=== PATIENT | female | born 1995 | race Caucasian/White ===

== ENCOUNTER 2022-07-25 05:22 | Emergency (ER) | payer OTHER ==
[~2022-07-25] VITALS: Ht 162.6 cm; Wt 77.1 kg
[2022-07-25 06:18] VITALS: BP 137/83
--- NOTE | 2022-07-25 06:19 | NUR ---
B[facility] C/O FLU LIKE SYMPTOMS STARTED WEDNESDAY, PT IS A/O X 4, RR EVEN AND UNLABORED NO SOB NOTED, PATIENT IS AFEBRILE. VSS. WILL CONTINUE TO MONITOR.
[2022-07-25] MEDS ORDERED: ONDANSETRON HCL/PF 4 MG/2 ML VIAL ONE (06:27)
[2022-07-25] MEDS ORDERED: IV NS 0.9% 1,000 ML BAG IV ONE (06:30)
[2022-07-25] MEDS ORDERED: ONDANSETRON HCL/PF 4 MG/2 ML VIAL IVP ONE (06:30)
--- NOTE | 2022-07-25 06:36 | NUR ---
RAC #20G S/L BLOOD AND COVID ANTIGEN SWAB COLLECTED AND SENT TO LAB
[2022-07-25 06:41] LABS: BASOPHILS # (AUTO) 0.1 K/uL (0.0-0.2); BASOPHILS % (AUTO) 0.6 % (0.0-2.0); EOSINOPHILS % (AUTO) 1.7 % (0.0-6.0); HEMATOCRIT 38 % (33-45); HEMOGLOBIN 13.1 g/dL (11.5-14.8); LYMPHOCYTES # (AUTO) 1.9 K/uL (0.8-4.8); LYMPHOCYTES % (AUTO) 20.6 % (20.0-44.0); MEAN CORPUSCULAR HGB CONC 34 g/dl (31.0-36.0); MEAN CORPUSCULAR VOLUME 86 fL (82-100); MONOCYTES # (AUTO) 0.8 K/uL (0.1-1.30); MONOCYTES % (AUTO) 8.2 % (2.0-12.0); NEUTROPHILS # (AUTO) 6.4 K/uL (1.8-8.9); NEUTROPHILS % (AUTO) 68.9 % (43.0-81.0); PLATELET COUNT (AUTO) 284 K/uL (150-450); RED BLOOD CELL COUNT(AUTO) 4.48 MIL/uL (4.0-5.2); WHITE BLOOD COUNT (AUTO) 9.4 K/uL (4.3-11.0)
--- NOTE | 2022-07-25 06:43 | NUR ---
urine sent to lab
[2022-07-25 06:45] LABS: BILIRUBIN,URINE NEGATIVE (NEGATIVE); COLOR,URINE DARK YELLOW (YELLOW); LEUKOCYTE ESTERASE ,URINE NEGATIVE (NEGATIVE); NITRITE, URINE NEGATIVE (NEGATIVE); PROTEIN,URINE TRACE mg/dl (NEGATIVE); UGLUCOSE NEGATIVE (NEGATIVE); UROBILINOGEN,URINE 0.2 EU/dL (0.2)
--- NOTE | 2022-07-25 06:45 | NUR ---
US TECH AT BEDSIDE
[2022-07-25 06:51] LABS: CALCIUM, SERUM 9.1 mg/dL (8.5-10.1); CARBON DIOXIDE 23 mmol/L (21-32); CHLORIDE 103 mmol/L (98-107); CREATININE 0.5 mg/dL (0.6-1.3); GLUCOSE 82 mg/dL (74-106); POTASSIUM 3.7 mmol/L (3.5-5.1); SODIUM SERUM 136 mmol/L (136-145); UREA NITROGEN, BLOOD 9 mg/dL (7-18)
[2022-07-25 06:57] LABS: ALANINE AMINOTRANSFERASE 19 U/L (12-78); ALBUMIN 3.3 g/dL (3.4-5.0); ALKALINE PHOSPHATASE 63 U/L (46-116); ASPARTATE AMINOTRANSFERASE 10 U/L (15-37); BILIRUBIN,DIRECT 0.1 mg/dL (0.0-0.2); BILIRUBIN,TOTAL 0.2 mg/dL (0.2-1.0); TOTAL PROTEIN, SERUM 7.6 g/dL (6.4-8.2)
[2022-07-25 06:59] LABS: BACTERIA,URINE Rare /HPF (None Seen); MUCUS,URINE Moderate /LPF (None Seen); RBC,URINE 0-2 /HPF (0-2); SQUAMOUS EPITHELIAL CELL,UR Moderate /HPF (None Seen)
--- NOTE | 2022-07-25 07:30 | NUR ---
Patient eloped from facility. ER MD notified.
--- NOTE | 2022-07-25 07:30 | NUR ---
ELOPED IN STABLE CONDITION
--- NOTE | 2022-07-25 08:07 | NUR ---
CALLED [facility]. SPOKE TO [employer] #[phone] AND FILED A REPORT.
== END 2022-07-25 08:18 | disposition left against medical advice (07) ==
LOC: ER 05:32
DX: R11.2 Nausea with vomiting, unspecified (principal); Z20.822 Contact with and (suspected) exposure to COVID-19; R00.0 Tachycardia, unspecified; E86.0 Dehydration
CPT/HCPCS: 99285; 96360; 76805; 87426; 93005; 85025; 80048; 87086; 80076; 81001; 36415; 84484; J7030; C9803; J2405

== ENCOUNTER 2024-01-03 23:17 | Emergency (ER) | payer OTHER ==
[~2024-01-03] VITALS: Ht 167.6 cm; Wt 64.0 kg
[2024-01-04 00:35] LABS: PREGNANCY TEST URINE QUAL NEGATIVE (NEGATIVE)
[2024-01-04 01:59] VITALS: BP 130/68; TEMP 98.5; O2SAT 100
== END 2024-01-04 01:59 | disposition home or self-care (01) ==
LOC: ER 23:21
DX: S06.0X0A Concussion without loss of consciousness, initial encounter (principal); S93.492A Sprain of other ligament of left ankle, initial encounter; S66.811A Strain of other specified muscles, fascia and tendons at wrist and hand level, right hand, initial encounter; Z60.2 Problems related to living alone; Y04.0XXA Assault by unarmed brawl or fight, initial encounter; Y93.89 Activity, other specified; Y92.89 Other specified places as the place of occurrence of the external cause; Y99.8 Other external cause status
CPT/HCPCS: 70450-TC; 73130-TC; 73610-TC; 84703-TC

== ENCOUNTER 2024-02-01 22:05 | Emergency (ER) | payer OTHER ==
[~2024-02-01] VITALS: Ht 162.6 cm; Wt 77.1 kg
[2024-02-01] MEDS ORDERED: PROM118S5 PO (22:29)
[2024-02-01 22:55] VITALS: BP 134/87; TEMP 98.1; O2SAT 99
== END 2024-02-01 22:55 | disposition home or self-care (01) ==
LOC: ER 22:08
DX: J11.1 Influenza due to unidentified influenza virus with other respiratory manifestations (principal); Z60.2 Problems related to living alone

== ENCOUNTER 2024-11-11 23:03 | Emergency (ER) | payer OTHER ==
[~2024-11-11] VITALS: Ht 162.6 cm; Wt 77.1 kg
[~2024-11-11 23:03] MED LIST: PROM118S5 PO
[2024-11-12] MEDS ORDERED: MORPHINE SULFATE INJ 4 MG/ML DISP.SYRIN ONE (00:12)
[2024-11-12] MEDS: MORPHINE SULFATE INJ 2 MG/ML DISP.SYRIN IV ONE (00:25)
[2024-11-12] MEDS: IV NS 0.9% 1,000 ML BAG IV ONE (00:25)
[2024-11-12 00:37] LABS: BASOPHILS # (AUTO) 0.1 K/uL (0.0-0.2); EOSINOPHILS # (AUTO) 0.3 K/uL (0.0-0.7); EOSINOPHILS % (AUTO) 2.7 % (0.0-6.0); HEMATOCRIT 40 % (33-45); HEMOGLOBIN 14.3 g/dL (11.5-14.8); LYMPHOCYTES # (AUTO) 4.1 K/uL (0.8-4.8); LYMPHOCYTES % (AUTO) 39.7 % (20.0-44.0); MEAN CORPUSCULAR HEMOGLOBIN 31 PG (26.0-33.0); MEAN CORPUSCULAR HGB CONC 36 g/dl (31.0-36.0); MEAN CORPUSCULAR VOLUME 88 fL (82-100); MONOCYTES # (AUTO) 0.5 K/uL (0.1-1.30); NEUTROPHILS # (AUTO) 5.3 K/uL (1.8-8.9); NEUTROPHILS % (AUTO) 51.6 % (43.0-81.0); PLATELET COUNT (AUTO) 426 K/uL (150-450); RED BLOOD CELL COUNT(AUTO) 4.58 MIL/uL (4.0-5.2); RED CELL DISTRIBUTION WIDTH 13.2 % (11.5-15.0); WHITE BLOOD COUNT (AUTO) 10.4 K/uL (4.3-11.0)
[2024-11-12 00:46] LABS: CALCIUM, SERUM 8.7 mg/dL (8.5-10.1); CREATININE 0.7 mg/dL (0.6-1.3); POTASSIUM 3.7 mmol/L (3.5-5.1)
[2024-11-12 00:52] LABS: ALBUMIN 4.1 g/dL (3.4-5.0); BILIRUBIN,DIRECT 0.1 mg/dL (0.0-0.2); BILIRUBIN,TOTAL 0.3 mg/dL (0.2-1.0); TOTAL PROTEIN, SERUM 8.1 g/dL (6.4-8.2)
[2024-11-12 01:15] LABS: INR 0.98 (0.91-1.10); PARTIAL THROMBOPLASTIN TIME 27.2 SEC (24.3-34.3); PROTHROMBIN TIME 10.4 SECS (9.2-11.1)
[2024-11-12] MEDS ORDERED: SILV20CR13 TP (02:08)
[2024-11-12] MEDS: SILVER SULFADIAZINE CREAM 25 GM TUBE TP ONE (02:11)
[2024-11-12 02:23] VITALS: BP 126/87; TEMP 98; O2SAT 99
== END 2024-11-12 02:23 | disposition home or self-care (01) ==
LOC: ER 23:09
DX: T24.212A Burn of second degree of left thigh, initial encounter (principal); T24.211A Burn of second degree of right thigh, initial encounter; T31.0 Burns involving less than 10% of body surface; R10.2 Pelvic and perineal pain; Z79.899 Other long term (current) drug therapy; Z60.2 Problems related to living alone; X08.8XXA Exposure to other specified smoke, fire and flames, initial encounter; Y93.89 Activity, other specified; Y92.89 Other specified places as the place of occurrence of the external cause; Y99.8 Other external cause status
CPT/HCPCS: 99285; 16020; 96374; 76856; 96361; 85025; 80048; 80076; 36415; 85730; 86850; 84702; J2270; A6253